=== PATIENT | female | born 1955 | race Caucasian/White ===

== ENCOUNTER 2018-03-24 21:50 | Inpatient (IN) | payer BC ==
[~2018-03-24] VITALS: Ht 160 cm; Wt 61.3 kg
[2018-03-24 22:18] LABS: HEMATOCRIT 38.5 % (36.0-46.0); MCH 33.3 PG (29.0-34.0); MCHC 33.8 G/DL (30.0-36.0); MCV 98.7 FL (83-99); PLATELET COUNT 167 K/uL (156-360); RBC DIS.WIDTH-CV 12.2 % (11.8-14.6)
[2018-03-24 22:29] LABS: ALBUMIN 4.5 g/dL (3.2-4.8); CHLORIDE 105 mEq/L (99-109); POTASSIUM 3.9 mEq/L (3.7-5.4); SODIUM 142 mEq/L (136-147)
[2018-03-24 22:31] LABS: GLUCOSE 101 mg/dL (70-99); TOTAL PROTEIN 7.5 g/dL (6.4-8.3)
[2018-03-24 22:33] LABS: TOTAL BILIRUBIN 0.7 mg/dL (0.0-1.0)
[2018-03-24 22:35] LABS: ALKALINE PHOSPHATASE 153 IU/L (3-129); CREATININE 0.7 mg/dL (0.6-1.3); GFR ESTIMATE (CALCULATED) > 59 mL/min/
[2018-03-24 22:36] LABS: UREA NITROGEN (BUN) 15 mg/dL (9-23)
[2018-03-24 22:37] LABS: AST (GOT) 523 IU/L (2-34)
[2018-03-24 22:38] LABS: ALT (GPT) 419 IU/L (3-49); LIPASE 258 U/L (1.0-51.0)
[2018-03-24 23:26] LABS: TROP-I INTERPRETATION NEGATIVE; TROPONIN-I < 0.01 ng/mL (0.0-0.30)
[2018-03-25 00:01] LABS: APPEARANCE CLEAR ((CLEAR)); BILIRUBIN NEGATIVE; BLOOD NEGATIVE; COLOR STRAW ((YELLOW)); GLUCOSE (STRIP) NEGATIVE; KETONES NEGATIVE; LEUKOCYTES TRACE; NITRITE NEGATIVE; PROTEIN (STRIP) NEGATIVE; UROBILINOGEN 0.2 MG/DL (0.2-1.0)
[2018-03-25 00:07] LABS: BACTERIA RARE /HPF; EPITHELIAL CELLS RARE /HPF; MUCUS NONE SEEN /LPF; RED BLOOD CELLS 0-5 /HPF (0-5); UCUL ADDED? NO; WHITE BLOOD CELLS 0-5 /HPF (0-5)
[2018-03-25] MEDS ORDERED: TOPROL XL200 MG PO (00:11)
[2018-03-25] MEDS ORDERED: LIPITOR10 MG PO (00:11)
[2018-03-25] MEDS ORDERED: CENTRUM SILVER1 EAC3 PO (00:11)
[2018-03-25] MEDS ORDERED: ZANTAC150 MG PO (00:12)
[2018-03-25] MEDS ORDERED: IMODIUM A-D2 M2 PO (00:12)
[2018-03-25] MEDS ORDERED: TYLENOL EXTRA500 MG PO (00:13)
[2018-03-25] MEDS ORDERED: VISINE A.C300 DROP/1 BOTH EYES (00:14)
[2018-03-25 02:20] VITALS: BP 154/70
[2018-03-25 02:22] LABS: TRIGLYCERIDES 140 MG/DL (Normal: <150)
[2018-03-25 02:23] LABS: C-REACTIVE PROTEIN < 1.0 MG/L (0-10)
[2018-03-25 06:39] LABS: BASOPHIL (%) 0.2 % (0-1); EOSINOPHIL (%) 1.4 % (0-5); EOSINOPHIL COUNT 0.1 K/uL (0-0.3); HEMATOCRIT 36.3 % (36.0-46.0); LYMPHOCYTE (%) 22.1 % (15-42); LYMPHOCYTE COUNT 0.9 K/uL (1.0-2.8); MCH 32.5 PG (29.0-34.0); MCHC 33.1 G/DL (30.0-36.0); MCV 98.4 FL (83-99); MONOCYTE (%) 8.2 % (3-12); MONOCYTE COUNT 0.4 K/uL (0-0.8); NEUTROPHIL (%) 68.1 % (45-76); NEUTROPHIL COUNT 2.9 K/uL (1.8-6.4); PLATELET COUNT 144 K/uL (156-360); RBC DIS.WIDTH-CV 12.4 % (11.8-14.6); RBC DIS.WIDTH-SD 44.8 % (39-53); RED BLOOD COUNT 3.69 M/uL (3.80-5.20); WHITE BLOOD COUNT 4.3 K/uL (4.1-10.2)
[2018-03-25 06:59] LABS: ALBUMIN 3.9 G/DL (3.2-4.8); ALKALINE PHOSPHATASE 142 IU/L (3-129); ALT (GPT) 357 IU/L (3-49); AST (GOT) 369 IU/L (2-34); CHLORIDE 109 MEQ/L (99-109); CREATININE 0.5 MG/DL (0.6-1.3); GFR ESTIMATE (CALCULATED) > 59 mL/min/; GLUCOSE 89 mg/dL (70-99); LIPASE 76 U/L (1.0-51.0); POTASSIUM 3.8 MEQ/L (3.7-5.4); SODIUM 142 MEQ/L (136-147); TOTAL BILIRUBIN 0.9 MG/DL (0.0-1.0); TOTAL PROTEIN 6.4 G/DL (6.4-8.3); UREA NITROGEN (BUN) 10 mg/dL (9-23)
[2018-03-25 07:09] VITALS: BP 149/69
[2018-03-25 11:14] LABS: HEPATITIS B SURFACE ANTIGEN Nonreactive
[2018-03-25 11:15] LABS: HEPATITIS C ANTIBODY Nonreactive
[2018-03-25 11:16] LABS: ANTI-HEPATITIS B CORE (IGM) Nonreactive
[2018-03-25 13:38] LABS: ANTI-HEPATITIS A VIRUS (IGM) Nonreactive
[2018-03-25 15:05] VITALS: BP 120/60
[2018-03-25 22:47] VITALS: BP 118/60
[2018-03-26 06:27] LABS: HEMATOCRIT 34.9 % (36.0-46.0); HEMOGLOBIN 11.5 G/DL (11.9-15.5); MCH 32.8 PG (29.0-34.0); MCV 99.4 FL (83-99); PLATELET COUNT 136 K/uL (156-360); RBC DIS.WIDTH-CV 12.6 % (11.8-14.6); RBC DIS.WIDTH-SD 45.5 % (39-53); RED BLOOD COUNT 3.51 M/uL (3.80-5.20)
[2018-03-26 06:55] LABS: ALBUMIN 3.6 G/DL (3.2-4.8); ALKALINE PHOSPHATASE 134 IU/L (3-129); ALT (GPT) 216 IU/L (3-49); CHLORIDE 109 MEQ/L (99-109); CREATININE 0.6 MG/DL (0.6-1.3); GFR ESTIMATE (CALCULATED) > 59 mL/min/; GLUCOSE 85 mg/dL (70-99); LIPASE 40 U/L (1.0-51.0); POTASSIUM 4.2 MEQ/L (3.7-5.4); SODIUM 141 MEQ/L (136-147); TOTAL PROTEIN 5.7 G/DL (6.4-8.3); UREA NITROGEN (BUN) 7 mg/dL (9-23)
[2018-03-26 06:57] LABS: AST (GOT) 98 IU/L (2-34); TOTAL BILIRUBIN 0.7 MG/DL (0.0-1.0)
[2018-03-26 10:13] VITALS: BP 122/60
[2018-03-28 12:10] LABS: MITOCHONDRIAL (M2) ANTIBODIES+ <=20.0 U (<=20.0)
[2018-03-28 12:42] LABS: ANTI-SMOOTH MUSCLE (Actin)+ <20 U (<20)
== END 2018-03-26 14:28 | disposition home or self-care (01) | DRG 445 ==
LOC: EME 21:50 → EDOF 03-25 00:52 → ENRESERV 03-25 00:58 → 5EAST 03-25 02:06 → ENPENDDIS 03-26 → 5EAST 03-26 14:28
PROVIDERS: Hospitalist; Internal Medicine Gastroenterology
DX: K83.8 Other specified diseases of biliary tract (principal); R10.13 Epigastric pain; R74.0 Nonspecific elevation of levels of transaminase and lactic acid dehydrogenase [LDH]; Q45.3 Other congenital malformations of pancreas and pancreatic duct; R00.1 Bradycardia, unspecified; T44.7X5A Adverse effect of beta-adrenoreceptor antagonists, initial encounter; I10 Essential (primary) hypertension; K21.9 Gastro-esophageal reflux disease without esophagitis; E78.5 Hyperlipidemia, unspecified; Z90.49 Acquired absence of other specified parts of digestive tract
CPT/HCPCS: 74177; 74183; 76705; 80053; 80074; 81003; 83516 90; 83690; 84478; 84484; 85025; 85027; 86038; 86140; 86256 90; 93005; 99281; 99285; J1644; J7030; J7120; S0028